=== PATIENT | male | born 1935 | race Caucasian/White ===

== ENCOUNTER 2016-09-21 11:57 | Emergency (ER) | payer MEDICARE ==
[~2016-09-21] VITALS: Ht 188 cm; Wt 84.3 kg
[2016-09-21] MEDS ORDERED: FINA5TAB4 PO (12:43)
[2016-09-21] MEDS ORDERED: CIPR500T87 PO (12:43)
[2016-09-21] MEDS ORDERED: SIMV20TA3 PO (12:43)
[2016-09-21] MEDS ORDERED: TAMS-11 PO (12:43)
[2016-09-21] MEDS ORDERED: PHEN-494 PO (12:43)
[2016-09-21] MEDS ORDERED: PRIM50TA PO (12:43)
[2016-09-21] MEDS ORDERED: BUDE10.22 INH (12:43)
[2016-09-21 14:09] LABS: BLOOD UREA NITROGEN 17 mg/dL (7-18)
[2016-09-21] MEDS ORDERED: ALBUTEROL/IPRATROPIUM 2.5MG/0.5MG, 3 ML NPPB ONE (15:00)
[2016-09-21] MEDS ORDERED: ALBUTEROL/IPRATROPIUM 2.5MG/0.5MG, 3 ML ONE (15:14)
[2016-09-21 15:39] VITALS: BP 125/71
== END 2016-09-21 16:04 | disposition home or self-care (01) ==
LOC: ED 13:17
DX: N30.00 Acute cystitis without hematuria (principal); J44.1 Chronic obstructive pulmonary disease with (acute) exacerbation
CPT/HCPCS: 36415; 71010; 80048; 81001; 82040; 85025; 87077; 87086; 87186; 94640; 99285; J7512; J7620